=== PATIENT | male | born 1990 | race Caucasian/White ===

== ENCOUNTER 2021-06-20 08:40 | Emergency (ER) | payer OTHER, SELFPAY ==
[2021-06-20 08:50] VITALS: BP 115/91; PULSE 65; RESP 18; TEMP 36.5; O2SAT 100
--- NOTE | 2021-06-20 09:12 | ED_ITS ---
HPI - URI/Sore Throat General Chief Complaint: Upper Respiratory Infection Stated Complaint: CONGESTION/SORE THROAT Source: patient and RN notes reviewed Limitations: no limitations History of Present Illness HPI Narrative: The vaccinated patient , previously mostly healthy who works at [employer], presents with couple day history of sore throat and nasal congestion with nasal drip. No fever, earache, loss of taste/smell, vomiting/diarrhea, CP, rash, shortness of breath. Symptoms are mild The patient has been informed that they may have pre-hypertension or Hypertension based on a BP reading in the department. I recommend that the patient call the primary care provider listed on their discharge instructions or a physician of their choice this week to arrange follow up for further evaluation of possible pre-hypertension or Hypertension Related Data Allergies Allergy/AdvReac Type Severity Reaction Status Date / Time No Known Allergies Allergy Unverified 06/20/21 08:51 Review of Systems Review of Systems: General/Constitutional: No weight loss,fever Eyes: N0: Redness,discharge Ears/Nose/Throat: No: Epistaxis,ear discharge Respiratory: Denies: Hemoptysis Skin: No Lumps, eruption Neurologic: No Focal Weakness,Sz Psychiatric: No: Suicida ideationl PMFSH Comments At time of signature, agree with nursing past medical, surgical, social and family history. There is no relevant family history pertinent to the presenting complaint Exam Narrative: General Appearance: Well appearing, , Conjunctiva clear Ears: Auditory canal normal, TM normal Nose: Rhinorrhea, Mucousal erythema Mouth/Throat: MM moist, Uvula midline, Pharyngeal erythema , Supple, No adenopathy Respiratory: No respiratory distress, Breath sounds equal, Clear to auscultation Musculoskeletal: Non tender, Normal strength, Warm, Dry Neurological: A&O x3, Normal affect Course Vital Signs Vital signs: Vital Signs Temperature 97.7 F 06/20/21 08:50 Pulse Rate 65 06/20/21 08:50 Respiratory Rate 18 06/20/21 08:50 Blood Pressure 115/91 H 06/20/21 08:50 Pulse Oximetry 100 06/20/21 08:50 Temperature 97.7 F 06/20/21 08:50 Pulse Rate 65 06/20/21 08:50 Respiratory Rate 18 06/20/21 08:50 Blood Pressure 115/91 H 06/20/21 08:50 Pulse Oximetry 100 06/20/21 08:50 Discharge Plan Discharge Clinical Impression: Odynophagia Patient Disposition: Home, Self-Care Condition: Stable Instructions: Antibiotic Form, Pharyngitis (ED) Prescriptions: New azithromycin 250 mg tablet See Rx Instructions .ROUTE .COMPLEX Qty: 6 RF: 0 lidocaine HCl [Lidocaine Viscous] 2 % solution 5 ml MUCOUS MEM QID PRN (Reason: pain) Qty: 100 RF: 0 azelastine 137 mcg (0.1 %) aerosol,spray 137 mcg NASAL Q12H Qty: 30 RF: 0 Follow-up/Referrals: UNKNOWN,DOCTOR [Primary Care Provider] - Stand Alone Forms: Work/School Release IP
[2021-06-21 19:57] LABS: SARS-CoV-2 RNA PCR Negative
== END 2021-06-20 09:17 | disposition home or self-care (01) ==
PROVIDERS: Emergency Provider Emergency Medicine
DX: R13.10 Dysphagia, unspecified (principal); Z20.822 Contact with and (suspected) exposure to COVID-19
CPT/HCPCS: 99213; C9803; G0463; U0003; U0005

== ENCOUNTER 2022-03-01 08:46 | Emergency (ER) | payer OTHER, SELFPAY ==
[2022-03-01 08:57] VITALS: BP 131/76; PULSE 54; RESP 20; TEMP 36.9; O2SAT 100
--- NOTE | 2022-03-01 09:25 | ED.EAR ---
HPI - Ear Problem General Chief complaint: Ear Stated complaint: Ear Pain Time Seen by Provider: 03/01/22 09:10 Source: patient Mode of arrival: ambulatory Limitations: no limitations History of Present Illness HPI Narrative: 31 yo M presents with pain to L ear for 1 wk. Getting progressively worse. c/o itching to both ear canals for several months. No recent swimming. Denies fever/chills. All systems reviewed and negative except as noted above. Related Data Allergies Allergy/AdvReac Type Severity Reaction Status Date / Time No Known Allergies Allergy Unverified 03/01/22 08:53 Review of Systems Review of Systems: CONSTITUTIONAL: Denies fever, chills, or sweats. EYES: Denies visual changes, redness, or discharge. ENT: Denies rhinorrhea, congestion, sore throat. Reports left ear pain and itching bilaterally. CARDIOVASCULAR: Denies chest pain, palpitations, or edema. RESPIRATORY: Denies cough or dyspnea. GASTROINTESTINAL: Denies abdominal pain, nausea, vomiting, or diarrhea. GENITOURINARY: Denies dysuria or hematuria. SKIN: Denies rash or itching. MUSCULOSKELETAL: Denies back pain, joint pain, or myalgia. NEUROLOGIC: Denies headache, numbness, or weakness. PSYCHIATRIC: Denies anxiety or depression. All other systems reviewed are negative, except as documented in HPI. PMFSH Comments At time of signature, agree with nursing past medical, surgical, social and family history. There is no relevant family history pertinent to the presenting complaint. Exam Narrative: GENERAL: This is a well-nourished, well-developed patient, in no apparent distress. HEAD: normocephalic, atraumatic. EYES: PERRL. Sclera clear/white. Vision is grossly intact. EARS: External ears normal,left ear canal erythematous, swollen, yellow drainage. Left TM erythematous, retracted. Right ear canal and TM normal. NOSE: External nose normal NECK: Neck supple, non-tender without lymphadenopathy, masses or thyromegaly. CARDIOVASCULAR: Regular rate and rhythm without murmurs, gallops, or rubs. RESPIRATORY: Clear to auscultation. Breath sounds equal bilaterally. No wheezes, rales, or rhonchi. SKIN: warm, Dry, intact with no suspicious lesions or rash, good texture and turgor. NEURO: awake, alert, and oriented to person, place and time. There were no obvious focal neurologic abnormalities. EXTREMITIES: No joint tenderness, effusion, or edema noted. Course Course Level of Care: Express Care Visit Vital Signs Vital signs: Vital Signs Temperature 36.9 C 03/01/22 08:57 Pulse Rate 54 L 03/01/22 08:57 Respiratory Rate 20 03/01/22 08:57 Blood Pressure 131/76 03/01/22 08:57 Pulse Oximetry 100 03/01/22 08:57 Oxygen Delivery Room Air 03/01/22 08:57 Temperature 36.9 C 03/01/22 08:57 Pulse Rate 54 L 03/01/22 08:57 Respiratory Rate 20 03/01/22 08:57 Blood Pressure 131/76 03/01/22 08:57 Pulse Oximetry 100 03/01/22 08:57 Oxygen Delivery Room Air 03/01/22 08:57 Reviewed Medical Decision Making MDM Narrative Medical decision making narrative: Patient is aware of diagnosis, understands and agrees to treatment plan. Anticipatory guidance given. Patient agrees to follow-up as directed and is aware of reasons to seek care at the emergency department. Portions of this record may have been created with voice recognition software Vital Signs Vital Signs: Vital Signs Temperature 36.9 C 03/01/22 08:57 Pulse Rate 54 L 03/01/22 08:57 Respiratory Rate 20 03/01/22 08:57 Blood Pressure 131/76 03/01/22 08:57 Pulse Oximetry 100 03/01/22 08:57 Oxygen Delivery Room Air 03/01/22 08:57 Temperature 36.9 C 03/01/22 08:57 Pulse Rate 54 L 03/01/22 08:57 Respiratory Rate 20 03/01/22 08:57 Blood Pressure 131/76 03/01/22 08:57 Pulse Oximetry 100 03/01/22 08:57 Oxygen Delivery Room Air 03/01/22 08:57 Discharge Plan Discharge Clinical Impression: Acute otitis externa of left ear, Acute
== END 2022-03-01 09:14 | disposition home or self-care (01) ==
PROVIDERS: Emergency Provider Nurse Practitioner Family
DX: H60.92 Unspecified otitis externa, left ear (principal); H66.92 Otitis media, unspecified, left ear; H93.8X3 Other specified disorders of ear, bilateral
CPT/HCPCS: 99213; G0463

== ENCOUNTER 2023-01-09 10:43 | Emergency (ER) | payer OTHER, SELFPAY | END 2023-01-09 11:10 | disposition left against medical advice (07) | PROVIDERS: Emergency Provider Internal Medicine Hematology & Oncology | DX: Z53.21 Procedure and treatment not carried out due to patient leaving prior to being seen by health care provider (principal) | CPT/HCPCS: 99199 ==